=== PATIENT | female | born 1965 | race Caucasian/White ===

== ENCOUNTER 2017-07-14 19:02 | Inpatient (IN) | payer OTHER ==
[2017-07-14] MEDS: SOD CHLORIDE 0.9% 1,000 ML IV ×2 (19:32→22:03)
[2017-07-14 19:36] LABS: ADD MAN DIFF? NO
[2017-07-14 19:39] LABS: WHITE BLOOD COUNT 7.9 10^3/ul (4.8-10.8)
[2017-07-14 19:39] LABS: BASOPHIL # 0.1 10^3/ul (0.0-0.1); BASOPHILS % 0.6 % (0.0-2.0); EOSINOPHILS % 0.4 % (0.0-7.0); HEMOGLOBIN 11.2 g/dl (12.0-16.0); LYMPHOCYTES # 1.7 10^3/ul (0.8-2.9); LYMPHOCYTES % 21.2 % (15.0-51.0); MEAN CORPUSCULAR HEMOGLOBIN 31.9 pg (29.0-33.0); MEAN CORPUSCULAR HGB CONC 33.9 g/dl (32.0-37.0); MEAN PLATELET VOLUME 12.3 fl (7.4-10.4); MONOCYTE # 0.5 10^3/ul (0.3-0.9); MONOCYTES % 6.8 % (0.0-11.0); NEUTROPHIL # 5.6 10^3/ul (1.6-7.5); NEUTROPHILS % 70.7 % (39.0-77.0); PLATELET COUNT 199 10^3/UL (140-415); RED BLOOD COUNT 3.51 10^6/ul (4.20-5.40)
[2017-07-14 19:56] LABS: ANION GAP 10 (8-16); BLOOD UREA NITROGEN 10 mg/dl (7-20); CALCIUM 8.2 mg/dl (8.4-10.2); CARBON DIOXIDE 25 mmol/L (21-31); CHLORIDE 107 mmol/L (97-110); CREATININE 0.57 mg/dl (0.44-1.00); GLUCOSE 124 mg/dl (70-220); POTASSIUM 3.3 mmol/L (3.5-5.1); SODIUM 139 mmol/L (135-144)
[2017-07-14 20:57] LABS: TROPONIN-I 0.456 ng/ml (0.00-0.12)
[2017-07-14] MEDS: ENOXAPARIN 80 MG/0.8 ML SYG SC (21:31)
[2017-07-14] MEDS ORDERED: ONDANSETRON 4 MG INJ IV ×2 (22:00→22:30)
[2017-07-14] MEDS ORDERED: ACETAMINOPHEN 325 MG TAB PO (22:00)
[2017-07-14] MEDS ORDERED: NACL 0.9% 3 ML SYG IV (22:30)
[2017-07-14] MEDS: LORAZEPAM 2 MG INJ IV (23:46)
[2017-07-14 23:50] LABS: CREATINE KINASE 63 IU/L (23-200)
[2017-07-15 00:01] LABS: CK INDEX 1.7; CK-MB 1.06 ng/ml (0.0-2.4); TROPONIN-I 0.467 ng/ml (0.00-0.12)
[2017-07-15] MEDS: DOPamine-D5W 1.6 MG/ML 250 ML IV ×2 (02:14→15:06)
[2017-07-15] MEDS: morphine 2 MG INJ IV (05:29)
[2017-07-15 05:31] LABS: ADD MAN DIFF? NO
[2017-07-15 05:34] LABS: WHITE BLOOD COUNT 9.3 10^3/ul (4.8-10.8)
[2017-07-15 05:34] LABS: BASOPHILS % 0.4 % (0.0-2.0); EOSINOPHILS # 0.1 10^3/ul (0.0-0.5); EOSINOPHILS % 0.5 % (0.0-7.0); HEMOGLOBIN 11.4 g/dl (12.0-16.0); LYMPHOCYTES # 1.8 10^3/ul (0.8-2.9); LYMPHOCYTES % 19.7 % (15.0-51.0); MEAN CORPUSCULAR HEMOGLOBIN 31.8 pg (29.0-33.0); MEAN CORPUSCULAR HGB CONC 34.5 g/dl (32.0-37.0); MEAN CORPUSCULAR VOLUME 91.9 fl (82.0-101.0); MEAN PLATELET VOLUME 12.5 fl (7.4-10.4); MONOCYTE # 0.6 10^3/ul (0.3-0.9); MONOCYTES % 6.7 % (0.0-11.0); NEUTROPHIL # 6.8 10^3/ul (1.6-7.5); NEUTROPHILS % 72.5 % (39.0-77.0); PLATELET COUNT 198 10^3/UL (140-415); RED BLOOD COUNT 3.59 10^6/ul (4.20-5.40); RED CELL DISTRIBUTION WIDTH 12.2 % (11.5-14.5)
[2017-07-15 05:48] LABS: CREATINE KINASE 53 IU/L (23-200)
[2017-07-15 05:51] LABS: ALANINE AMINOTRANSFERASE 32 IU/L (13-69); ALBUMIN 3.4 g/dl (3.3-4.9); ALBUMIN/GLOBULIN RATIO 1.21; ALKALINE PHOSPHATASE 40 IU/L (42-121); ANION GAP 10 (8-16); ASPARTATE AMINO TRANSFERASE 23 IU/L (15-46); BILIRUBIN,INDIRECT 0.6 mg/dl (0-1.1); BILIRUBIN,TOTAL 0.6 mg/dl (0.2-1.3); BLOOD UREA NITROGEN 9 mg/dl (7-20); CALCIUM 8.6 mg/dl (8.4-10.2); CARBON DIOXIDE 25 mmol/L (21-31); CHLORIDE 110 mmol/L (97-110); CREATININE 0.54 mg/dl (0.44-1.00); GLUCOSE 126 mg/dl (70-220); POTASSIUM 3.5 mmol/L (3.5-5.1); SODIUM 141 mmol/L (135-144); TOTAL PROTEIN 6.2 g/dl (6.1-8.1)
[2017-07-15 06:01] LABS: CK-MB 1.06 ng/ml (0.0-2.4)
[2017-07-15 06:07] LABS: TROPONIN-I 0.183 ng/ml (0.00-0.12)
[2017-07-15] MEDS: ASPIRIN 81 MG TAB PO (08:20)
[2017-07-15] MEDS: FAMOTIDINE 20 MG INJ IV ×2 (08:20→20:58)
[2017-07-15] MEDS: ENOXAPARIN 30 MG/0.3 ML SYG SC (08:30)
[2017-07-15 19:30] LABS: THYROID STIMULATING HORMONE 0.756 MIU/L (0.465-4.680)
[2017-07-15] MEDS: ACETAMINOPHEN 325 MG TAB PO (19:37)
[2017-07-16] MEDS: DOPamine-D5W 1.6 MG/ML 250 ML IV ×2 (06:25→21:00)
[2017-07-16 06:50] LABS: CHOLESTEROL 126 mg/dl (100-200)
[2017-07-16 06:50] LABS: CHOL/HDL RATIO 2.6 RATIO; HDL CHOLESTEROL 47 mg/dl (37-92); LDL CHOLESTEROL,CALCULATED 67 mg/dl; TRIGLYCERIDES 61 mg/dl (0-149)
[2017-07-16 06:52] LABS: CREATINE KINASE 42 IU/L (23-200)
[2017-07-16 06:55] LABS: ALANINE AMINOTRANSFERASE 29 IU/L (13-69); ALBUMIN 3.5 g/dl (3.3-4.9); ALBUMIN/GLOBULIN RATIO 1.34; ALKALINE PHOSPHATASE 40 IU/L (42-121); ANION GAP 11 (8-16); ASPARTATE AMINO TRANSFERASE 16 IU/L (15-46); BILIRUBIN,INDIRECT 0.4 mg/dl (0-1.1); BILIRUBIN,TOTAL 0.4 mg/dl (0.2-1.3); BLOOD UREA NITROGEN 7 mg/dl (7-20); CALCIUM 8.8 mg/dl (8.4-10.2); CARBON DIOXIDE 29 mmol/L (21-31); CHLORIDE 108 mmol/L (97-110); CREATININE 0.64 mg/dl (0.44-1.00); GLUCOSE 103 mg/dl (70-220); POTASSIUM 3.7 mmol/L (3.5-5.1); SODIUM 144 mmol/L (135-144); TOTAL PROTEIN 6.1 g/dl (6.1-8.1)
[2017-07-16 07:01] LABS: CK INDEX 1.1; CK-MB 0.47 ng/ml (0.0-2.4); TROPONIN-I 0.088 ng/ml (0.00-0.12)
[2017-07-16] MEDS: FAMOTIDINE 20 MG INJ IV ×2 (08:33→21:01)
[2017-07-16] MEDS: ASPIRIN 81 MG TAB PO (08:36)
[2017-07-16] MEDS: ENOXAPARIN 30 MG/0.3 ML SYG SC (08:41)
[2017-07-16] MEDS: ACETAMINOPHEN 325 MG TAB PO (19:51)
[2017-07-17] MEDS: DOPamine-D5W 1.6 MG/ML 250 ML IV ×2 (07:54→16:37)
[2017-07-17] MEDS: ASPIRIN 81 MG TAB PO (08:25)
[2017-07-17] MEDS: FAMOTIDINE 20 MG INJ IV ×2 (08:25→20:42)
[2017-07-17] MEDS: ENOXAPARIN 30 MG/0.3 ML SYG SC (08:27)
[2017-07-17 11:10] LABS: ADD MAN DIFF? NO
[2017-07-17 11:15] LABS: BASOPHILS % 0.6 % (0.0-2.0); EOSINOPHILS # 0.1 10^3/ul (0.0-0.5); EOSINOPHILS % 2.2 % (0.0-7.0); HEMOGLOBIN 12.3 g/dl (12.0-16.0); LYMPHOCYTES # 1.8 10^3/ul (0.8-2.9); LYMPHOCYTES % 28.8 % (15.0-51.0); MEAN CORPUSCULAR HEMOGLOBIN 31.1 pg (29.0-33.0); MEAN CORPUSCULAR HGB CONC 34.2 g/dl (32.0-37.0); MEAN CORPUSCULAR VOLUME 91.1 fl (82.0-101.0); MEAN PLATELET VOLUME 12.1 fl (7.4-10.4); MONOCYTE # 0.4 10^3/ul (0.3-0.9); MONOCYTES % 6.3 % (0.0-11.0); NEUTROPHILS % 61.9 % (39.0-77.0); PLATELET COUNT 215 10^3/UL (140-415); RED BLOOD COUNT 3.95 10^6/ul (4.20-5.40); RED CELL DISTRIBUTION WIDTH 11.9 % (11.5-14.5)
[2017-07-17 11:15] LABS: WHITE BLOOD COUNT 6.4 10^3/ul (4.8-10.8)
[2017-07-17 11:33] LABS: ALANINE AMINOTRANSFERASE 39 IU/L (13-69); ALBUMIN 4.1 g/dl (3.3-4.9); ALBUMIN/GLOBULIN RATIO 1.57; ALKALINE PHOSPHATASE 42 IU/L (42-121); ANION GAP 16 (8-16); ASPARTATE AMINO TRANSFERASE 21 IU/L (15-46); BILIRUBIN,INDIRECT 0.3 mg/dl (0-1.1); BILIRUBIN,TOTAL 0.3 mg/dl (0.2-1.3); BLOOD UREA NITROGEN 9 mg/dl (7-20); CALCIUM 9.1 mg/dl (8.4-10.2); CARBON DIOXIDE 27 mmol/L (21-31); CHLORIDE 107 mmol/L (97-110); CREATININE 0.67 mg/dl (0.44-1.00); GLUCOSE 108 mg/dl (70-220); POTASSIUM 3.9 mmol/L (3.5-5.1); SODIUM 146 mmol/L (135-144); TOTAL PROTEIN 6.7 g/dl (6.1-8.1)
[2017-07-18] MEDS: ACETAMINOPHEN 325 MG TAB PO (03:02)
[2017-07-18] MEDS: DOPamine-D5W 1.6 MG/ML 250 ML IV (03:08)
[2017-07-18 04:38] LABS: ADD MAN DIFF? NO
[2017-07-18 04:40] LABS: WHITE BLOOD COUNT 7.5 10^3/ul (4.8-10.8)
[2017-07-18 04:40] LABS: BASOPHILS % 0.5 % (0.0-2.0); EOSINOPHILS # 0.2 10^3/ul (0.0-0.5); EOSINOPHILS % 3.1 % (0.0-7.0); HEMATOCRIT 35.9 % (37.0-47.0); HEMOGLOBIN 12.3 g/dl (12.0-16.0); LYMPHOCYTES # 2.6 10^3/ul (0.8-2.9); MEAN CORPUSCULAR HEMOGLOBIN 31.3 pg (29.0-33.0); MEAN CORPUSCULAR HGB CONC 34.3 g/dl (32.0-37.0); MEAN CORPUSCULAR VOLUME 91.3 fl (82.0-101.0); MEAN PLATELET VOLUME 12.1 fl (7.4-10.4); MONOCYTE # 0.6 10^3/ul (0.3-0.9); MONOCYTES % 7.3 % (0.0-11.0); NEUTROPHIL # 4.1 10^3/ul (1.6-7.5); PLATELET COUNT 195 10^3/UL (140-415); RED BLOOD COUNT 3.93 10^6/ul (4.20-5.40); RED CELL DISTRIBUTION WIDTH 11.9 % (11.5-14.5)
[2017-07-18 05:47] LABS: ALANINE AMINOTRANSFERASE 42 IU/L (13-69); ALBUMIN 3.8 g/dl (3.3-4.9); ALBUMIN/GLOBULIN RATIO 1.46; ALKALINE PHOSPHATASE 46 IU/L (42-121); ANION GAP 16 (8-16); ASPARTATE AMINO TRANSFERASE 26 IU/L (15-46); BILIRUBIN,INDIRECT 0.3 mg/dl (0-1.1); BILIRUBIN,TOTAL 0.3 mg/dl (0.2-1.3); BLOOD UREA NITROGEN 14 mg/dl (7-20); CALCIUM 9.1 mg/dl (8.4-10.2); CARBON DIOXIDE 28 mmol/L (21-31); CHLORIDE 106 mmol/L (97-110); GLUCOSE 127 mg/dl (70-220); POTASSIUM 4.2 mmol/L (3.5-5.1); SODIUM 146 mmol/L (135-144); TOTAL PROTEIN 6.4 g/dl (6.1-8.1)
[2017-07-18] MEDS: ASPIRIN 81 MG TAB PO (08:20)
[2017-07-18] MEDS: FAMOTIDINE 20 MG INJ IV (08:20)
[2017-07-18] MEDS: ENOXAPARIN 30 MG/0.3 ML SYG SC (08:21)
[2017-07-18] MEDS: FAMOTIDINE 20 MG TAB PO (21:17)
[2017-07-19 06:08] LABS: ADD MAN DIFF? NO
[2017-07-19 06:13] LABS: BASOPHIL # 0.1 10^3/ul (0.0-0.1); BASOPHILS % 0.9 % (0.0-2.0); EOSINOPHILS # 0.2 10^3/ul (0.0-0.5); EOSINOPHILS % 4.2 % (0.0-7.0); HEMOGLOBIN 12.3 g/dl (12.0-16.0); LYMPHOCYTES # 2.3 10^3/ul (0.8-2.9); LYMPHOCYTES % 39.5 % (15.0-51.0); MEAN CORPUSCULAR HEMOGLOBIN 31.8 pg (29.0-33.0); MEAN CORPUSCULAR HGB CONC 34.2 g/dl (32.0-37.0); MEAN PLATELET VOLUME 12.3 fl (7.4-10.4); MONOCYTE # 0.5 10^3/ul (0.3-0.9); MONOCYTES % 9.3 % (0.0-11.0); NEUTROPHIL # 2.6 10^3/ul (1.6-7.5); NEUTROPHILS % 45.9 % (39.0-77.0); PLATELET COUNT 196 10^3/UL (140-415); RED BLOOD COUNT 3.87 10^6/ul (4.20-5.40); RED CELL DISTRIBUTION WIDTH 11.9 % (11.5-14.5)
[2017-07-19 06:13] LABS: WHITE BLOOD COUNT 5.7 10^3/ul (4.8-10.8)
[2017-07-19 07:08] LABS: ALANINE AMINOTRANSFERASE 42 IU/L (13-69); ALBUMIN/GLOBULIN RATIO 1.53; ALKALINE PHOSPHATASE 43 IU/L (42-121); ANION GAP 14 (8-16); ASPARTATE AMINO TRANSFERASE 23 IU/L (15-46); BILIRUBIN,INDIRECT 0.4 mg/dl (0-1.1); BILIRUBIN,TOTAL 0.4 mg/dl (0.2-1.3); BLOOD UREA NITROGEN 16 mg/dl (7-20); CALCIUM 9.2 mg/dl (8.4-10.2); CARBON DIOXIDE 31 mmol/L (21-31); CHLORIDE 106 mmol/L (97-110); GLUCOSE 86 mg/dl (70-220); POTASSIUM 4.5 mmol/L (3.5-5.1); SODIUM 146 mmol/L (135-144); TOTAL PROTEIN 6.6 g/dl (6.1-8.1)
[2017-07-19] MEDS: FAMOTIDINE 20 MG TAB PO ×2 (08:43→20:22)
[2017-07-19] MEDS: ASPIRIN 81 MG TAB PO (08:43)
[2017-07-19] MEDS: ENOXAPARIN 30 MG/0.3 ML SYG SC (08:45)
[2017-07-20] MEDS: FAMOTIDINE 20 MG TAB PO ×2 (08:07→20:12)
[2017-07-20] MEDS: ASPIRIN 81 MG TAB PO (08:07)
[2017-07-20] MEDS: ENOXAPARIN 30 MG/0.3 ML SYG SC (08:08)
[2017-07-20] MEDS: REGADENOSON 0.4 MG/5 ML SYG (10:15)
[2017-07-20] MEDS: ACETAMINOPHEN 325 MG TAB PO (20:12)
[2017-07-21 07:28] LABS: ADD MAN DIFF? NO
[2017-07-21 07:31] LABS: BASOPHILS % 0.7 % (0.0-2.0); EOSINOPHILS # 0.1 10^3/ul (0.0-0.5); EOSINOPHILS % 2.2 % (0.0-7.0); HEMATOCRIT 35.9 % (37.0-47.0); HEMOGLOBIN 12.1 g/dl (12.0-16.0); LYMPHOCYTES # 2.2 10^3/ul (0.8-2.9); LYMPHOCYTES % 40.3 % (15.0-51.0); MEAN CORPUSCULAR HEMOGLOBIN 31.7 pg (29.0-33.0); MEAN CORPUSCULAR HGB CONC 33.7 g/dl (32.0-37.0); MEAN PLATELET VOLUME 12.7 fl (7.4-10.4); MONOCYTE # 0.4 10^3/ul (0.3-0.9); MONOCYTES % 8.1 % (0.0-11.0); NEUTROPHIL # 2.6 10^3/ul (1.6-7.5); NEUTROPHILS % 48.5 % (39.0-77.0); PLATELET COUNT 192 10^3/UL (140-415); RED BLOOD COUNT 3.82 10^6/ul (4.20-5.40); RED CELL DISTRIBUTION WIDTH 12.2 % (11.5-14.5)
[2017-07-21 07:31] LABS: WHITE BLOOD COUNT 5.3 10^3/ul (4.8-10.8)
[2017-07-21 07:56] LABS: ANION GAP 15 (8-16); BLOOD UREA NITROGEN 24 mg/dl (7-20); CALCIUM 9.4 mg/dl (8.4-10.2); CARBON DIOXIDE 29 mmol/L (21-31); CHLORIDE 108 mmol/L (97-110); CREATININE 0.72 mg/dl (0.44-1.00); GLUCOSE 88 mg/dl (70-220); SODIUM 147 mmol/L (135-144)
[2017-07-21 08:07] LABS: POTASSIUM 5.1 mmol/L (3.5-5.1)
[2017-07-21] MEDS: FAMOTIDINE 20 MG TAB PO (09:31)
[2017-07-21] MEDS: ASPIRIN 81 MG TAB PO (09:31)
[2017-07-21] MEDS: ENOXAPARIN 30 MG/0.3 ML SYG SC (09:37)
== END 2017-07-21 18:20 | disposition home or self-care (01) | DRG 281 ==
LOC: ICU 21:58 → MS4 07-18 20:00 → E/R 19:02 → ICU 07-15 03:55
PROC: 06HN33Z Insertion of Infusion Device into Left Femoral Vein, Percutaneous Approach (ICD-10-PCS; principal; 2017-07-15)
PROC: B54CZZA Ultrasonography of Left Lower Extremity Veins, Guidance (ICD-10-PCS; 2017-07-15)
DX: I21.4 Non-ST elevation (NSTEMI) myocardial infarction (principal); R57.9 Shock, unspecified; R11.2 Nausea with vomiting, unspecified; R00.1 Bradycardia, unspecified; D64.9 Anemia, unspecified
CPT/HCPCS: 36415; 71045; 78452; 80048; 80053; 80061; 82550; 82553; 84443; 84484; 85025; 87081; 93005; 93017; 93306; 96372; 96374; 99291-25

== ENCOUNTER → 2017-07-14 | Day surgery (SDC) | payer OTHER ==
[~2017-07-14] MED LIST: EPINEPHrine 0.1 MG/ML SYG; FENTAnyl 50 MCG/ML VIAL; LIDOCAINE 4% SOLUTION 50 ML BTL; METOPROLOL 5 MG INJ; MIDAZOLAM 1 MG/ML 2 ML INJ
== END | disposition home or self-care (01) ==
LOC: GIL 12:22
DX: Z12.11 Encounter for screening for malignant neoplasm of colon (principal); Z53.9 Procedure and treatment not carried out, unspecified reason; I95.9 Hypotension, unspecified
CPT/HCPCS: 93005

== ENCOUNTER 2017-07-26 15:52 | Outpatient (CLI) | payer OTHER | END 2017-07-26 16:57 | disposition home or self-care (01) | LOC: DCC 15:52 | DX: R00.2 Palpitations (principal); M25.512 Pain in left shoulder; D64.9 Anemia, unspecified; I25.2 Old myocardial infarction; Z79.82 Long term (current) use of aspirin | CPT/HCPCS: G0463 ==